=== PATIENT | female | born 1945 | race Caucasian/White ===

== ENCOUNTER 2016-10-03 12:32 | Emergency (ER) | payer MEDICARE ==
[~2016-10-03] VITALS: Ht 157.4 cm; Wt 79.4 kg
[~2016-10-03 12:32] MED LIST: ALLEGRA D PO; AMLODIPINE5 MG PO; ASPIRIN325 MG PO; AUGMENTIN 875875 MG PO; BACTRIM DS 8001 TA1 PO; CHANTIX1 M1 PO; CIPRO500 MG PO; CIPROFLOXACIN500 MG PO; CLARITIN10 MG PO; FLAGYL500 MG PO; JANUVIA50 MG PO; LISINOPRIL HCTZ1 TA1 PO; LISINOPRIL/HCTZ1 TA3 PO; LISINOPRIL20 MG PO; LOMOTIL 0.025 M1 TA1 PO; METFORMIN500 MG PO; METOPROLOL SUCC25 M2 PO; MOTRIN800 MG PO; PREDNISONE10 MG PO; PREDNISONE20 M1 PO; PREDNISONE20 MG PO; TESSALON PERLE200 MG PO; TOPROL XL25 MG PO; VITAMIN D32000 I1 PO; XARE20MG PO; ZETIA10 MG PO; ZITHROMAX Z PA250 MG PO; ZITHROMAX250 MG PO; Zofran4 MG PO
[2016-10-03 14:04] LABS: BASO # 0.1 10*3/uL (0.0-0.1); BASO % 0.6 % (0.0-1.0); EOS # 0.3 10*3/uL (0.0-0.4); HEMATOCRIT 44.3 % (37.0-47.0); HEMOGLOBIN 13.8 g/dl (12.0-16.0); LYMPH # 2.1 10*3/uL (1.3-4.4); LYMPH % 22.7 % (27.0-41.0); MEAN CELL VOLUME 91.9 fl (81.0-99.0); MEAN CORPUSCULAR HGB 28.6 pg (27.0-31.0); MEAN CORPUSCULAR HGB CONC 31.2 g/dl (33.0-37.0); MEAN PLATELET VOLUME 11.4 fl (9.6-12.3); MONO # 0.9 10*3/uL (0.1-1.0); MONO % 9.4 % (3.0-9.0); NEUT % 63.9 % (47.0-73.0); PLATELET COUNT AUTOMATED 223 10*3/uL (130-400); RED BLOOD COUNT 4.82 10*6/uL (4.10-5.10); RED CELL DISTRI WIDTH 14.3 % (0-14.5); WHITE BLOOD COUNT 9.4 10*3/uL (4.8-10.8)
[2016-10-03 14:31] LABS: BUN 14 mg/dl (7-24); CARBON DIOXIDE 29 mmol/L (21-32); CHLORIDE 105 mmol/L (98-107); EST GLOM FILT AFRICAN AMERICAN > 60 ml/min; GLUCOSE 140 mg/dL (65-99); POTASSIUM 4.5 mmol/L (3.5-5.1); SODIUM 142 mmol/L (136-145)
[2016-10-03] MEDS ORDERED: ZITHROMAX250 MG PO (15:24)
[2016-10-03] MEDS ORDERED: DELTASONE20 M1 PO (15:24)
[2016-11-07] MEDS ORDERED: ANAPROX DS550 MG PO (15:46)
[2016-11-07] MEDS ORDERED: TRAMADOL HCL50 MG PO (15:53)
== END 2016-10-03 15:29 | disposition home or self-care (01) ==
LOC: ED 12:32
PROVIDERS: Emergency Medicine
DX: J40 Bronchitis, not specified as acute or chronic (principal); F17.200 Nicotine dependence, unspecified, uncomplicated; F41.9 Anxiety disorder, unspecified; I48.91 Unspecified atrial fibrillation; E11.9 Type 2 diabetes mellitus without complications; I10 Essential (primary) hypertension; E78.5 Hyperlipidemia, unspecified; Z86.73 Personal history of transient ischemic attack (TIA), and cerebral infarction without residual deficits; Z90.710 Acquired absence of both cervix and uterus; Z88.8 Allergy status to other drugs, medicaments and biological substances

== ENCOUNTER → 2017-01-18 | Outpatient (CLI) | payer MEDICARE ==
[~2017-01-18] MED LIST changes: +ANAPROX DS550 MG PO; +DELTASONE20 M1 PO; +TRAMADOL HCL50 MG PO
[2017-01-18 09:58] LABS: BASO # 0.1 10*3/uL (0.0-0.1); BASO % 0.7 % (0.0-1.0); EOS # 0.4 10*3/uL (0.0-0.4); EOS % 4.1 % (1.0-4.0); HEMATOCRIT 43.6 % (37.0-47.0); HEMOGLOBIN 14.1 g/dl (12.0-16.0); LYMPH # 2.5 10*3/uL (1.3-4.4); LYMPH % 25.5 % (27.0-41.0); MEAN CELL VOLUME 90.5 fl (81.0-99.0); MEAN CORPUSCULAR HGB 29.3 pg (27.0-31.0); MEAN CORPUSCULAR HGB CONC 32.3 g/dl (33.0-37.0); MEAN PLATELET VOLUME 11.5 fl (9.6-12.3); MONO # 0.9 10*3/uL (0.1-1.0); MONO % 9.5 % (3.0-9.0); NEUT # 5.9 10*3/uL (2.3-7.9); NEUT % 59.9 % (47.0-73.0); PLATELET COUNT AUTOMATED 272 10*3/uL (130-400); RED BLOOD COUNT 4.82 10*6/uL (4.10-5.10); RED CELL DISTRI WIDTH 13.5 % (0-14.5); WHITE BLOOD COUNT 9.8 10*3/uL (4.8-10.8)
[2017-01-18 10:26] LABS: ALBUMIN 3.5 gm/dl (3.1-4.5); ALKALINE PHOSPHATASE 88 U/L (45-117); BILIRUBIN, TOTAL 0.5 mg/dl (0.2-1.0); BUN 20 mg/dl (7-24); CARBON DIOXIDE 29 mmol/L (21-32); CHLORIDE 103 mmol/L (98-107); CHOLESTEROL 183 mg/dL (<200); EST GLOM FILT AFRICAN AMERICAN > 60 ml/min; GLUCOSE 117 mg/dL (65-99); HDL CHOLESTEROL 47 mg/dl (40-60); LDL CHOLESTEROL 113 mg/dL (9-159); POTASSIUM 4.1 mmol/L (3.5-5.1); SGOT/AST 34 IU/L (3-35); SGPT/ALT 41 U/L (12-78); SODIUM 138 mmol/L (136-145); TOTAL PROTEIN 7.3 gm/dL (6.4-8.2); TRIGLYCERIDES 113 mg/dl (<150); VLDL CHOLESTEROL 23 mg/dL (6-40)
== END | disposition home or self-care (01) ==
LOC: LAB 09:03
PROVIDERS: Internal Medicine
DX: E11.9 Type 2 diabetes mellitus without complications (principal)

== ENCOUNTER 2017-05-12 08:49 | Emergency (ER) | payer MEDICARE ==
[~2017-05-12] VITALS: Ht 160 cm; Wt 0.5 kg
[2017-05-12] MEDS ORDERED: HYDROXYZINE HCL50 MG PO (09:20)
[2017-05-12] MEDS ORDERED: KENALOG 0.1%80 GM T (09:20)
== END 2017-05-12 09:41 | disposition home or self-care (01) ==
LOC: ED 08:49
DX: L25.9 Unspecified contact dermatitis, unspecified cause (principal); E11.9 Type 2 diabetes mellitus without complications; I48.91 Unspecified atrial fibrillation; I10 Essential (primary) hypertension; E78.5 Hyperlipidemia, unspecified; I48.92 Unspecified atrial flutter; F17.200 Nicotine dependence, unspecified, uncomplicated; Z86.73 Personal history of transient ischemic attack (TIA), and cerebral infarction without residual deficits; Z88.8 Allergy status to other drugs, medicaments and biological substances; Z79.899 Other long term (current) drug therapy

== ENCOUNTER → 2017-05-13 | Outpatient (CLI) | payer MEDICARE ==
[~2017-05-13] MED LIST changes: +HYDROXYZINE HCL50 MG PO; +KENALOG 0.1%80 GM T
== END | disposition home or self-care (01) ==
LOC: MAMMO 04:41
DX: Z12.31 Encounter for screening mammogram for malignant neoplasm of breast (principal)

== ENCOUNTER 2018-03-15 13:44 | Emergency (ER) | payer MEDICARE, OTHER ==
[~2018-03-15] VITALS: Wt 76.2 kg
== END 2018-03-15 16:44 | disposition home or self-care (01) ==
LOC: ED 13:44
DX: M54.2 Cervicalgia (principal); F17.200 Nicotine dependence, unspecified, uncomplicated; Z90.710 Acquired absence of both cervix and uterus; Z79.899 Other long term (current) drug therapy; Z88.8 Allergy status to other drugs, medicaments and biological substances; V43.52XA Car driver injured in collision with other type car in traffic accident, initial encounter; Y93.89 Activity, other specified; Y92.481 Parking lot as the place of occurrence of the external cause; Y99.8 Other external cause status

== ENCOUNTER → 2018-03-17 | Outpatient (CLI) | payer MEDICARE, OTHER | END | disposition home or self-care (01) | LOC: RAD 15:17 | DX: M75.91 Shoulder lesion, unspecified, right shoulder (principal); I48.91 Unspecified atrial fibrillation; E04.1 Nontoxic single thyroid nodule; M67.911 Unspecified disorder of synovium and tendon, right shoulder ==

== ENCOUNTER → 2018-03-25 | Outpatient (CLI) | payer MEDICARE | END | disposition home or self-care (01) | LOC: NM 06:53 | DX: E04.1 Nontoxic single thyroid nodule (principal) ==

== ENCOUNTER → 2018-07-03 | Outpatient (CLI) | payer MEDICARE ==
[~2018-07-03] MED LIST changes: +BENADRYL25 M2 PO; +MEDROL DOSEPAK4 MG PO
== END | disposition home or self-care (01) ==
LOC: MAMMO 07-02 13:59
DX: Z12.31 Encounter for screening mammogram for malignant neoplasm of breast (principal)

== ENCOUNTER 2018-07-31 00:50 | Emergency (ER) | payer MEDICARE ==
[~2018-07-31] VITALS: Ht 158.7 cm; Wt 77.1 kg
[~2018-07-31 00:50] MED LIST changes: -BENADRYL25 M2 PO; -MEDROL DOSEPAK4 MG PO
[2018-07-31] MEDS ORDERED: MEDROL DOSEPAK4 MG PO (01:05)
[2018-07-31] MEDS ORDERED: BENADRYL25 M2 PO (01:05)
== END 2018-07-31 01:25 | disposition home or self-care (01) ==
LOC: ED 00:50
DX: T63.441A Toxic effect of venom of bees, accidental (unintentional), initial encounter (principal); M79.672 Pain in left foot; F17.200 Nicotine dependence, unspecified, uncomplicated; Z88.8 Allergy status to other drugs, medicaments and biological substances; Z79.899 Other long term (current) drug therapy; Y92.89 Other specified places as the place of occurrence of the external cause

== ENCOUNTER 2018-12-04 11:32 | Emergency (ER) | payer OTHER ==
[~2018-12-04] VITALS: Ht 157.4 cm; Wt 77.1 kg
--- NOTE | ~2018-12-04 | EKG ---
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
--- NOTE | ~2018-12-04 | EKG ---
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
[~2018-12-04 11:32] MED LIST changes: +BENADRYL25 M2 PO; +MEDROL DOSEPAK4 MG PO
[2018-12-04 11:50] LABS: BASO # 0.1 10*3/uL (0.0-0.1); BASO % 0.8 % (0.0-1.0); EOS # 0.3 10*3/uL (0.0-0.4); HEMATOCRIT 50.2 % (37.0-47.0); HEMOGLOBIN 16.3 g/dl (12.0-16.0); LYMPH # 2.9 10*3/uL (1.3-4.4); LYMPH % 21.3 % (27.0-41.0); MEAN CELL VOLUME 92.1 fl (81.0-99.0); MEAN CORPUSCULAR HGB 29.9 pg (27.0-31.0); MEAN CORPUSCULAR HGB CONC 32.5 g/dl (33.0-37.0); MEAN PLATELET VOLUME 11.6 fl (9.6-12.3); MONO % 7.5 % (3.0-9.0); NEUT # 9.1 10*3/uL (2.3-7.9); NEUT % 67.7 % (47.0-73.0); PLATELET COUNT AUTOMATED 298 10*3/uL (130-400); RED BLOOD COUNT 5.45 10*6/uL (4.10-5.10); RED CELL DISTRI WIDTH 13.5 % (0-14.5); WHITE BLOOD COUNT 13.5 10*3/uL (4.8-10.8)
[2018-12-04 12:00] LABS: ACT PARTIAL THROMBO TIME 28.7 SECONDS (20.8-31.5); INTERNATIONAL NORM RATIO 1.1 (2.0-3.5)
[2018-12-04 13:04] LABS: ALBUMIN 3.4 gm/dl (3.1-4.5); ALKALINE PHOSPHATASE 93 U/L (45-117); BUN 14 mg/dl (7-24); CHLORIDE 100 mmol/L (98-107); CREATININE 1.01 mg/dL (0.55-1.02); POTASSIUM 4.1 mmol/L (3.5-5.1); SGOT/AST 22 IU/L (3-35); SGPT/ALT 33 U/L (12-78); SODIUM 135 mmol/L (136-145); TOTAL PROTEIN 7.7 gm/dL (6.4-8.2)
[2018-12-04 13:08] LABS: TROPONIN I 0.137 ng/ml (<0.045)
== END 2018-12-04 15:31 | disposition short-term general hospital (02) ==
LOC: ED 11:32
PROVIDERS: Emergency Medicine
DX: I21.4 Non-ST elevation (NSTEMI) myocardial infarction (principal); I48.91 Unspecified atrial fibrillation; E11.9 Type 2 diabetes mellitus without complications; F17.200 Nicotine dependence, unspecified, uncomplicated; I10 Essential (primary) hypertension; E78.5 Hyperlipidemia, unspecified; I48.92 Unspecified atrial flutter; Z90.49 Acquired absence of other specified parts of digestive tract; Z86.73 Personal history of transient ischemic attack (TIA), and cerebral infarction without residual deficits; Z90.710 Acquired absence of both cervix and uterus; Z98.890 Other specified postprocedural states; Z98.51 Tubal ligation status; Z79.899 Other long term (current) drug therapy; Z91.041 Radiographic dye allergy status; Z79.01 Long term (current) use of anticoagulants; Z79.82 Long term (current) use of aspirin

== ENCOUNTER → 2019-10-07 | Outpatient (CLI) | payer OTHER | END | disposition home or self-care (01) | LOC: RAD 13:57 | DX: M51.36 Other intervertebral disc degeneration, lumbar region (principal); E11.9 Type 2 diabetes mellitus without complications; I10 Essential (primary) hypertension; J44.0 Chronic obstructive pulmonary disease with (acute) lower respiratory infection; F17.200 Nicotine dependence, unspecified, uncomplicated ==

== ENCOUNTER → 2019-10-19 | Outpatient (CLI) | payer OTHER | LOC: MAMMO 01:38 | DX: Z12.31 Encounter for screening mammogram for malignant neoplasm of breast (principal) ==

== ENCOUNTER 2021-05-29 23:19 | Inpatient (IN) | payer OTHER ==
[~2021-05-29] VITALS: Ht 160 cm; Wt 75.0 kg
[~2021-05-29 23:19] MED LIST changes: +GLUCOPHAGE500 MG PO; -LISINOPRIL20 MG PO; +ZESTRIL10 MG PO
[2021-05-29 23:30] VITALS: BP 145/73
[2021-05-30] VITALS (7 sets, daily range): BP systolic 119–162; BP diastolic 48–88
[2021-05-30 00:15] LABS: BASO # 0.1 10*3/uL (0.0-0.1); BASO % 0.7 % (0.0-1.0); EOS # 0.4 10*3/uL (0.0-0.4); EOS % 3.1 % (1.0-4.0); HEMATOCRIT 43.5 % (37.0-47.0); LYMPH # 1.7 10*3/uL (1.3-4.4); LYMPH % 14.1 % (27.0-41.0); MEAN CELL VOLUME 92.9 fl (81.0-99.0); MEAN CORPUSCULAR HGB 29.7 pg (27.0-31.0); MEAN PLATELET VOLUME 11.5 fl (9.6-12.3); NEUT # 9.1 10*3/uL (2.3-7.9); NEUT % 73.7 % (47.0-73.0); PLATELET COUNT AUTOMATED 232 10*3/uL (130-400); RED BLOOD COUNT 4.68 10*6/uL (4.10-5.10); RED CELL DISTRI WIDTH 13.9 % (0-14.5); WHITE BLOOD COUNT 12.3 10*3/uL (4.8-10.8)
[2021-05-30 00:29] LABS: ALBUMIN 3.7 gm/dl (3.1-4.5); CREATININE 1.33 mg/dL (0.55-1.02); POTASSIUM 3.6 mmol/L (3.5-5.1); TOTAL PROTEIN 7.9 gm/dL (6.4-8.2)
[2021-05-30 00:59] LABS: BILIRUBIN Negative (Negative); BLOOD Negative (Negative); CLARITY Cloudy (Clear); COLOR Yellow (Yellow); GLUCOSE Negative (Negative); KETONE Trace (Negative); LEUKO ESTERASE 1+ (Negative); NITRITE Negative (Negative)
[2021-05-30 01:16] LABS: EPITHELIAL CELLS 41-50; WBC 16-20 wbc/hpf (0-5)
[2021-05-30 01:17] LABS: BACTERIA 1+; YEAST TRACE
[2021-05-30] MEDS ORDERED: METOPROLOL SUCC25 M2 PO (05:41)
[2021-05-30] MEDS ORDERED: Motrin,Rufen800 MG PO (05:45)
[2021-05-30] MEDS ORDERED: TRAZODONE50 MG PO (05:47)
[2021-05-30] MEDS ORDERED: COMBIVENT RESPIM4 GM INH ×2 (05:49→05:51)
[2021-05-30] MEDS ORDERED: ALBUTEROL2.5 MG/0.5 NEB (05:50)
[2021-05-30] MEDS ORDERED: FUROSEMIDE20 M1 PO (05:51)
[2021-05-30 06:26] LABS: BASO # 0.1 10*3/uL (0.0-0.1); BASO % 0.5 % (0.0-1.0); EOS % 0.2 % (1.0-4.0); HEMATOCRIT 43.4 % (37.0-47.0); LYMPH # 1.4 10*3/uL (1.3-4.4); LYMPH % 12.2 % (27.0-41.0); MEAN CELL VOLUME 92.9 fl (81.0-99.0); MEAN CORPUSCULAR HGB 29.1 pg (27.0-31.0); MEAN CORPUSCULAR HGB CONC 31.3 g/dl (33.0-37.0); MEAN PLATELET VOLUME 11.8 fl (9.6-12.3); MONO # 0.5 10*3/uL (0.1-1.0); MONO % 4.4 % (3.0-9.0); NEUT # 9.3 10*3/uL (2.3-7.9); NEUT % 82.3 % (47.0-73.0); PLATELET COUNT AUTOMATED 223 10*3/uL (130-400); RED BLOOD COUNT 4.67 10*6/uL (4.10-5.10); RED CELL DISTRI WIDTH 13.8 % (0-14.5); WHITE BLOOD COUNT 11.3 10*3/uL (4.8-10.8)
[2021-05-30 06:34] LABS: ALBUMIN 3.2 gm/dl (3.1-4.5); ALKALINE PHOSPHATASE 79 U/L (45-117); BUN 26 mg/dl (7-24); CHLORIDE 108 mmol/L (98-107); CREATININE 1.04 mg/dL (0.55-1.02); POTASSIUM 3.9 mmol/L (3.5-5.1); SGOT/AST 19 IU/L (3-35); SGPT/ALT 25 U/L (12-78); SODIUM 139 mmol/L (136-145); TOTAL PROTEIN 7.5 gm/dL (6.4-8.2)
[2021-05-31] VITALS: BP 120/52
[2021-05-31 07:02] LABS: BASO # 0.1 10*3/uL (0.0-0.1); BASO % 0.5 % (0.0-1.0); EOS # 0.1 10*3/uL (0.0-0.4); EOS % 1.2 % (1.0-4.0); HEMATOCRIT 38.4 % (37.0-47.0); LYMPH # 2.2 10*3/uL (1.3-4.4); LYMPH % 19.6 % (27.0-41.0); MEAN CELL VOLUME 92.8 fl (81.0-99.0); MEAN CORPUSCULAR HGB 29.5 pg (27.0-31.0); MEAN CORPUSCULAR HGB CONC 31.8 g/dl (33.0-37.0); MEAN PLATELET VOLUME 11.9 fl (9.6-12.3); MONO # 0.9 10*3/uL (0.1-1.0); NEUT # 7.8 10*3/uL (2.3-7.9); NEUT % 70.2 % (47.0-73.0); PLATELET COUNT AUTOMATED 205 10*3/uL (130-400); RED BLOOD COUNT 4.14 10*6/uL (4.10-5.10); WHITE BLOOD COUNT 11.1 10*3/uL (4.8-10.8)
[2021-05-31 07:25] LABS: CHLORIDE 110 mmol/L (98-107); POTASSIUM 3.7 mmol/L (3.5-5.1); SODIUM 139 mmol/L (136-145)
[2021-05-31 07:31] LABS: CREATININE 0.83 mg/dL (0.55-1.02)
[2021-05-31 07:32] LABS: BUN 15 mg/dl (7-24)
[2021-05-31 08:00] VITALS: BP 144/74
[2021-05-31 12:00] VITALS: BP 134/68
[2021-05-31 16:00] VITALS: BP 111/61
[2021-05-31 20:00] VITALS: BP 166/86
[2021-06-01] VITALS: BP 152/81
[2021-06-01 06:05] LABS: BASO # 0.1 10*3/uL (0.0-0.1); BASO % 0.7 % (0.0-1.0); EOS # 0.2 10*3/uL (0.0-0.4); EOS % 2.6 % (1.0-4.0); HEMATOCRIT 41.2 % (37.0-47.0); LYMPH # 1.8 10*3/uL (1.3-4.4); LYMPH % 20.5 % (27.0-41.0); MEAN CELL VOLUME 91.2 fl (81.0-99.0); MEAN CORPUSCULAR HGB 29.2 pg (27.0-31.0); MEAN PLATELET VOLUME 11.6 fl (9.6-12.3); MONO # 0.9 10*3/uL (0.1-1.0); MONO % 9.8 % (3.0-9.0); NEUT # 5.8 10*3/uL (2.3-7.9); NEUT % 65.6 % (47.0-73.0); PLATELET COUNT AUTOMATED 198 10*3/uL (130-400); RED BLOOD COUNT 4.52 10*6/uL (4.10-5.10); RED CELL DISTRI WIDTH 13.6 % (0-14.5); WHITE BLOOD COUNT 8.8 10*3/uL (4.8-10.8)
[2021-06-01 06:22] LABS: BUN 8 mg/dl (7-24); CHLORIDE 108 mmol/L (98-107); CREATININE 0.72 mg/dL (0.55-1.02); POTASSIUM 3.2 mmol/L (3.5-5.1); SODIUM 138 mmol/L (136-145)
[2021-06-01 08:00] VITALS: BP 176/88
[2021-06-01 12:00] VITALS: BP 138/65
[2021-06-01 16:00] VITALS: BP 143/76
[2021-06-01 20:00] VITALS: BP 150/72
[2021-06-02] VITALS: BP 151/71
[2021-06-02 06:29] LABS: CHLORIDE 106 mmol/L (98-107); POTASSIUM 3.7 mmol/L (3.5-5.1); SODIUM 138 mmol/L (136-145)
[2021-06-02 06:34] LABS: BUN 6 mg/dl (7-24); CREATININE 0.78 mg/dL (0.55-1.02)
[2021-06-02 08:00] VITALS: BP 150/104
[2021-06-02 12:00] VITALS: BP 142/72
[2021-06-02 16:00] VITALS: BP 106/83
[2021-06-02 20:00] VITALS: BP 142/67
[2021-06-03] VITALS: BP 138/71
[2021-06-03 06:51] LABS: BUN 15 mg/dl (7-24); CHLORIDE 106 mmol/L (98-107); CREATININE 0.94 mg/dL (0.55-1.02); POTASSIUM 3.8 mmol/L (3.5-5.1); SODIUM 138 mmol/L (136-145)
[2021-06-03 08:00] VITALS: BP 146/79
[2021-06-03 12:00] VITALS: BP 141/72
[2021-06-03] MEDS ORDERED: CIPRO500 MG PO (13:38)
[2021-06-03] MEDS ORDERED: HYDROCODONE-AC1 EAC1 PO (13:58)
== END 2021-06-03 14:20 | disposition home or self-care (01) | DRG 871 ==
LOC: ED 23:19 → 5E 05-30 02:26 → 4E 05-30 02:26 → EDHOLD 05-30 02:26 → 4E 05-30 03:28 → 5E 05-30 20:18
PROVIDERS: Emergency Medicine; Hospitalist; Internal Medicine; Social Worker Clinical; ADMIT Internal Medicine; ATTEND Internal Medicine
DX: A41.9 Sepsis, unspecified organism (principal); J96.00 Acute respiratory failure, unspecified whether with hypoxia or hypercapnia; N17.0 Acute kidney failure with tubular necrosis; N30.00 Acute cystitis without hematuria; E87.2 Acidosis; I48.0 Paroxysmal atrial fibrillation; R65.20 Severe sepsis without septic shock; F17.210 Nicotine dependence, cigarettes, uncomplicated; F41.9 Anxiety disorder, unspecified; E11.65 Type 2 diabetes mellitus with hyperglycemia; E78.5 Hyperlipidemia, unspecified; I10 Essential (primary) hypertension; E55.9 Vitamin D deficiency, unspecified; K76.0 Fatty (change of) liver, not elsewhere classified; N28.1 Cyst of kidney, acquired; I25.2 Old myocardial infarction; Z86.73 Personal history of transient ischemic attack (TIA), and cerebral infarction without residual deficits; Z90.710 Acquired absence of both cervix and uterus; Z98.51 Tubal ligation status; Z95.1 Presence of aortocoronary bypass graft; Z71.6 Tobacco abuse counseling; Z82.49 Family history of ischemic heart disease and other diseases of the circulatory system; Z79.51 Long term (current) use of inhaled steroids; Z79.899 Other long term (current) drug therapy

== ENCOUNTER → 2021-08-10 | Outpatient (CLI) | payer OTHER ==
[~2021-08-10] MED LIST changes: +ALBUTEROL2.5 MG/0.5 NEB; +COMBIVENT RESPIM4 GM INH; +FUROSEMIDE20 M1 PO; +HYDROCODONE-AC1 EAC1 PO; +Motrin,Rufen800 MG PO; +TRAZODONE50 MG PO
== END | disposition home or self-care (01) ==
LOC: LAB 15:31
PROVIDERS: ATTEND Family Medicine
DX: R19.7 Diarrhea, unspecified (principal)

== ENCOUNTER → 2022-02-08 | Outpatient (CLI) | payer OTHER | END | disposition home or self-care (01) | LOC: US 13:30 | PROVIDERS: ATTEND Specialist | DX: E04.1 Nontoxic single thyroid nodule (principal) ==

== ENCOUNTER → 2022-04-30 | Outpatient (CLI) | payer OTHER | END | disposition home or self-care (01) | LOC: MAMMO 14:54 | PROVIDERS: ATTEND Physician Assistant | DX: Z12.31 Encounter for screening mammogram for malignant neoplasm of breast (principal) ==

== ENCOUNTER 2022-11-30 10:12 | Emergency (ER) | payer OTHER ==
[~2022-11-30] VITALS: Wt 76.2 kg
[2022-11-30 10:55] LABS: BILIRUBIN Negative (Negative); BLOOD 2+ (Negative); CLARITY Turbid (Clear); COLOR Yellow (Yellow); GLUCOSE Negative (Negative); KETONE Negative (Negative); LEUKO ESTERASE 3+ (Negative); NITRITE Negative (Negative); PH 5.5 (4.5-8.0); UROBILINOGEN 0.2 E.U./dl (0.0-1.0)
[2022-11-30 11:04] LABS: WBC TNTC wbc/hpf (0-5)
[2022-11-30] MEDS ORDERED: CIPRO500 MG PO (11:11)
== END 2022-11-30 11:11 | disposition home or self-care (01) ==
LOC: ED 10:12
PROVIDERS: Student in an Organized Health Care Education/Training Program
DX: N39.0 Urinary tract infection, site not specified (principal); F41.9 Anxiety disorder, unspecified; I10 Essential (primary) hypertension; E11.9 Type 2 diabetes mellitus without complications; I48.91 Unspecified atrial fibrillation; Z88.8 Allergy status to other drugs, medicaments and biological substances; Z90.710 Acquired absence of both cervix and uterus; Z98.51 Tubal ligation status; Z98.890 Other specified postprocedural states; F17.200 Nicotine dependence, unspecified, uncomplicated; Z98.49 Cataract extraction status, unspecified eye; Z96.1 Presence of intraocular lens

== ENCOUNTER → 2023-01-09 | Outpatient (CLI) | payer OTHER | LOC: CT 00:45 | PROVIDERS: ATTEND Physician Assistant | DX: J43.8 Other emphysema (principal); J47.9 Bronchiectasis, uncomplicated; K76.0 Fatty (change of) liver, not elsewhere classified; J84.10 Pulmonary fibrosis, unspecified; N28.1 Cyst of kidney, acquired; J98.11 Atelectasis; I70.0 Atherosclerosis of aorta; I25.10 Atherosclerotic heart disease of native coronary artery without angina pectoris; E04.2 Nontoxic multinodular goiter; K40.20 Bilateral inguinal hernia, without obstruction or gangrene, not specified as recurrent; M48.061 Spinal stenosis, lumbar region without neurogenic claudication ==

== ENCOUNTER → 2023-02-14 | Outpatient (CLI) | payer OTHER, MEDICAID | END | disposition home or self-care (01) | LOC: US 01:44 | PROVIDERS: ATTEND Specialist | DX: E04.2 Nontoxic multinodular goiter (principal) ==

== ENCOUNTER 2023-03-24 13:51 | Emergency (ER) | payer OTHER, MEDICAID ==
[~2023-03-24] VITALS: Ht 160 cm; Wt 76.2 kg
[2023-03-24 14:36] LABS: BASO # 0.1 10*3/uL (0.0-0.1); BASO % 0.5 % (0.0-1.0); EOS # 0.1 10*3/uL (0.0-0.4); EOS % 0.5 % (1.0-4.0); LYMPH # 1.6 10*3/uL (1.3-4.4); LYMPH % 13.1 % (27.0-41.0); MEAN CELL VOLUME 92.5 fl (81.0-99.0); MEAN CORPUSCULAR HGB 30.3 pg (27.0-31.0); MEAN CORPUSCULAR HGB CONC 32.7 g/dl (33.0-37.0); MEAN PLATELET VOLUME 11.2 fl (9.6-12.3); MONO # 0.9 10*3/uL (0.1-1.0); MONO % 7.3 % (3.0-9.0); NEUT # 9.4 10*3/uL (2.3-7.9); NEUT % 78.2 % (47.0-73.0); PLATELET COUNT AUTOMATED 238 10*3/uL (130-400); RED BLOOD COUNT 5.19 10*6/uL (4.10-5.10); RED CELL DISTRI WIDTH 13.8 % (0-14.5)
[2023-03-24 14:56] LABS: POTASSIUM 4.1 mmol/L (3.4-5.1); TOTAL PROTEIN 7.5 gm/dL (6.0-8.0)
[2023-03-24 16:13] LABS: BILIRUBIN Negative (Negative); BLOOD Trace-Lysed (Negative); CLARITY Clear (Clear); COLOR Yellow (Yellow); GLUCOSE 3+ (Negative); KETONE Negative (Negative); LEUKO ESTERASE Negative (Negative); NITRITE Negative (Negative); SPECIFIC GRAVITY 1.015 (1.001-1.030); UROBILINOGEN 0.2 E.U./dl (0.0-1.0)
[2023-03-24 16:19] LABS: MUCOUS 1+
[2023-03-24] MEDS ORDERED: CIPRO500 MG PO (16:53)
[2023-03-24] MEDS ORDERED: HYDROCODONE-AC1 EAC1 PO (16:53)
[2023-03-24] MEDS ORDERED: METRONIDAZOLE500 M1 PO (16:53)
[2023-03-25] MEDS ORDERED: JARDIANCE25 MG PO (20:06)
[2023-03-25] MEDS ORDERED: NEURONTIN300 MG PO (20:06)
[2023-03-25] MEDS ORDERED: LUMIGAN50 DRP OPH (20:07)
[2023-03-25] MEDS ORDERED: BRIMONIDINE TART5 ML OU (20:08)
[2023-03-26] MEDS ORDERED: D3 DOTS50 MCG PO (08:58)
[2023-03-28] MEDS ORDERED: DELZICOL400 M2 PO (12:56)
== END 2023-03-24 16:58 | disposition home or self-care (01) ==
LOC: ED 13:51
PROVIDERS: Emergency Medicine
DX: K52.9 Noninfective gastroenteritis and colitis, unspecified (principal); I10 Essential (primary) hypertension; F41.9 Anxiety disorder, unspecified; E11.9 Type 2 diabetes mellitus without complications; I48.91 Unspecified atrial fibrillation; Z88.8 Allergy status to other drugs, medicaments and biological substances; Z90.710 Acquired absence of both cervix and uterus; Z98.51 Tubal ligation status; Z98.890 Other specified postprocedural states; Z98.42 Cataract extraction status, left eye; Z96.1 Presence of intraocular lens; F17.200 Nicotine dependence, unspecified, uncomplicated

== ENCOUNTER → 2023-05-05 | Day surgery (SDC) | payer OTHER, MEDICAID ==
[~2023-05-05] VITALS: Ht 160 cm; Wt 75.7 kg
[~2023-05-05] MED LIST changes: +ASPIRIN ADULT L81 M2 PO; +BRIMONIDINE TART5 ML OU; +D3 DOTS50 MCG PO; +DELZICOL400 M2 PO; +JARDIANCE25 MG PO; +LUMIGAN50 DRP OU; +METRONIDAZOLE500 M1 PO; +NEURONTIN300 MG PO
[2023-05-05 06:30] VITALS: BP 107/49
[2023-05-05 07:49] VITALS: BP 72/38
[2023-05-05 08:04] VITALS: BP 99/50
[2023-05-05 08:19] VITALS: BP 111/63
[2023-05-05 08:28] VITALS: BP 142/71
== END ==
LOC: SDC 05-01 08:00
PROVIDERS: ATTEND Surgery
DX: K52.9 Noninfective gastroenteritis and colitis, unspecified (principal); K21.9 Gastro-esophageal reflux disease without esophagitis; K29.50 Unspecified chronic gastritis without bleeding; E11.9 Type 2 diabetes mellitus without complications; I25.2 Old myocardial infarction; I10 Essential (primary) hypertension; I25.10 Atherosclerotic heart disease of native coronary artery without angina pectoris; E78.00 Pure hypercholesterolemia, unspecified; J44.9 Chronic obstructive pulmonary disease, unspecified; Z86.16 Personal history of COVID-19; Z86.73 Personal history of transient ischemic attack (TIA), and cerebral infarction without residual deficits; Z85.828 Personal history of other malignant neoplasm of skin; Z87.891 Personal history of nicotine dependence; Z79.899 Other long term (current) drug therapy; Z98.51 Tubal ligation status; Z90.710 Acquired absence of both cervix and uterus; Z98.890 Other specified postprocedural states; Z88.8 Allergy status to other drugs, medicaments and biological substances

== ENCOUNTER → 2023-09-01 | Outpatient (CLI) | payer OTHER, MEDICAID | END | disposition home or self-care (01) | LOC: RAD 00:33 | PROVIDERS: ATTEND Physician Assistant | DX: Z13.820 Encounter for screening for osteoporosis (principal); Z78.0 Asymptomatic menopausal state ==

== ENCOUNTER 2023-12-19 15:02 | Emergency (ER) | payer OTHER ==
[~2023-12-19] VITALS: Ht 162.5 cm; Wt 70.3 kg
[2023-12-19] MEDS ORDERED: SODIUM CHLORIDE 0.9% 1,000 ML IV ONE (15:45)
[2023-12-19] MEDS ORDERED: Atropine Sulfate/Diphenoxyla 1 TAB TAB PO ONE (15:50)
[2023-12-19 16:16] LABS: BASO # 0.1 10*3/uL (0.0-0.1); BASO % 0.6 % (0.0-1.0); EOS % 7.1 % (1.0-4.0); LYMPH # 2.6 10*3/uL (1.3-4.4); MEAN CELL VOLUME 93.6 fl (81.0-99.0); MEAN CORPUSCULAR HGB 27.9 pg (27.0-31.0); MEAN CORPUSCULAR HGB CONC 29.8 g/dl (33.0-37.0); MEAN PLATELET VOLUME 11.6 fl (9.6-12.3); MONO # 1.3 10*3/uL (0.1-1.0); MONO % 9.4 % (3.0-9.0); NEUT # 8.7 10*3/uL (2.3-7.9); NEUT % 63.6 % (47.0-73.0); PLATELET COUNT AUTOMATED 269 10*3/uL (130-400); RED BLOOD COUNT 5.77 10*6/uL (4.10-5.10); RED CELL DISTRI WIDTH 15.4 % (0-14.5); WHITE BLOOD COUNT 13.7 10*3/uL (4.8-10.8)
[2023-12-19] MEDS ORDERED: Albuterol Sulfate 2.5 MG/3 ML VIAL NEB SCH (16:23)
[2023-12-19 16:39] LABS: POTASSIUM 3.7 mmol/L (3.4-5.1); TOTAL PROTEIN 8.1 gm/dL (6.0-8.0)
[2023-12-19] MEDS ORDERED: PROBIOTIC1 EAC7 PO (16:47)
[2023-12-19] MEDS ORDERED: ANTI-DIARRHEAL2 MG PO (16:47)
== END 2023-12-19 17:07 | disposition home or self-care (01) ==
LOC: ED 15:02
PROVIDERS: Emergency Medicine
DX: R19.7 Diarrhea, unspecified (principal); E11.9 Type 2 diabetes mellitus without complications; I10 Essential (primary) hypertension; E78.5 Hyperlipidemia, unspecified; F41.9 Anxiety disorder, unspecified; I48.91 Unspecified atrial fibrillation; I25.10 Atherosclerotic heart disease of native coronary artery without angina pectoris; E78.00 Pure hypercholesterolemia, unspecified; J44.9 Chronic obstructive pulmonary disease, unspecified; Z88.8 Allergy status to other drugs, medicaments and biological substances; Z98.890 Other specified postprocedural states; Z90.710 Acquired absence of both cervix and uterus; F17.200 Nicotine dependence, unspecified, uncomplicated

== ENCOUNTER 2024-01-28 14:13 | Emergency (ER) | payer OTHER, MEDICAID ==
[~2024-01-28] VITALS: Wt 72.6 kg
[~2024-01-28 14:13] MED LIST changes: +ANTI-DIARRHEAL2 MG PO; +PROBIOTIC1 EAC7 PO
[2024-01-28 15:07] LABS: BASO % 0.3 % (0.0-1.0); EOS # 0.2 10*3/uL (0.0-0.4); EOS % 2.1 % (1.0-4.0); HEMATOCRIT 46.1 % (37.0-47.0); LYMPH # 1.5 10*3/uL (1.3-4.4); LYMPH % 14.3 % (27.0-41.0); MEAN CELL VOLUME 89.5 fl (81.0-99.0); MEAN CORPUSCULAR HGB 27.6 pg (27.0-31.0); MEAN CORPUSCULAR HGB CONC 30.8 g/dl (33.0-37.0); MEAN PLATELET VOLUME 11.4 fl (9.6-12.3); MONO # 1.3 10*3/uL (0.1-1.0); MONO % 12.2 % (3.0-9.0); NEUT # 7.5 10*3/uL (2.3-7.9); NEUT % 70.8 % (47.0-73.0); PLATELET COUNT AUTOMATED 184 10*3/uL (130-400); RED BLOOD COUNT 5.15 10*6/uL (4.10-5.10); RED CELL DISTRI WIDTH 14.8 % (0-14.5); WHITE BLOOD COUNT 10.6 10*3/uL (4.8-10.8)
[2024-01-28 15:21] LABS: ACT PARTIAL THROMBO TIME 27.7 SECONDS (20.0-32.1)
[2024-01-28] MEDS ORDERED: AZITHROMYCIN 250 MG TAB PO ONE (18:05)
[2024-01-28] MEDS ORDERED: AVPAK AZITHROM250 M1 PO (18:05)
[2024-01-28] MEDS ORDERED: PREDNISONE20 M1 PO (18:05)
[2024-01-28] MEDS ORDERED: methylPREDNISolone sod succ 125 MG VIAL IM ONE (18:05)
== END 2024-01-28 18:45 | disposition home or self-care (01) ==
LOC: ED 14:13
PROVIDERS: Nurse Practitioner Family
DX: U07.1 COVID-19 (principal); J44.9 Chronic obstructive pulmonary disease, unspecified; R11.2 Nausea with vomiting, unspecified; R19.7 Diarrhea, unspecified; F41.9 Anxiety disorder, unspecified; E11.65 Type 2 diabetes mellitus with hyperglycemia; I10 Essential (primary) hypertension; E78.5 Hyperlipidemia, unspecified; I48.91 Unspecified atrial fibrillation; E78.00 Pure hypercholesterolemia, unspecified; Z88.8 Allergy status to other drugs, medicaments and biological substances; Z98.890 Other specified postprocedural states; Z90.710 Acquired absence of both cervix and uterus; Z98.51 Tubal ligation status; F17.200 Nicotine dependence, unspecified, uncomplicated

== ENCOUNTER → 2024-02-27 | Outpatient (CLI) | payer OTHER, MEDICAID ==
[~2024-02-27] MED LIST changes: +AVPAK AZITHROM250 M1 PO
== END ==
LOC: US 02-26 01:53
PROVIDERS: ATTEND Physician Assistant
DX: E04.2 Nontoxic multinodular goiter (principal)

== ENCOUNTER 2024-03-22 16:39 | Inpatient (IN) | payer OTHER, MEDICAID ==
[~2024-03-22] VITALS: Ht 160 cm; Wt 75.3 kg
[2024-03-22 17:09] VITALS: BP 126/53
[2024-03-22 17:32] LABS: BASO # 0.1 10*3/uL (0.0-0.1); BASO % 0.6 % (0.0-1.0); EOS # 1.5 10*3/uL (0.0-0.4); EOS % 14.7 % (1.0-4.0); HEMATOCRIT 45.4 % (37.0-47.0); LYMPH # 2.1 10*3/uL (1.3-4.4); LYMPH % 20.5 % (27.0-41.0); MEAN CELL VOLUME 93.2 fl (81.0-99.0); MEAN CORPUSCULAR HGB 28.7 pg (27.0-31.0); MEAN CORPUSCULAR HGB CONC 30.8 g/dl (33.0-37.0); MEAN PLATELET VOLUME 11.6 fl (9.6-12.3); MONO # 1.1 10*3/uL (0.1-1.0); MONO % 10.6 % (3.0-9.0); NEUT # 5.4 10*3/uL (2.3-7.9); NEUT % 53.1 % (47.0-73.0); PLATELET COUNT AUTOMATED 240 10*3/uL (130-400); RED BLOOD COUNT 4.87 10*6/uL (4.10-5.10); RED CELL DISTRI WIDTH 16.9 % (0-14.5); WHITE BLOOD COUNT 10.1 10*3/uL (4.8-10.8)
[2024-03-22 17:43] LABS: ACT PARTIAL THROMBO TIME 23.9 SECONDS (20.0-32.1)
[2024-03-22 17:46] LABS: POTASSIUM 3.9 mmol/L (3.4-5.1)
[2024-03-22] MEDS ORDERED: ASPIRIN, CHEWABLE 81 MG TAB PO ONE (18:10)
[2024-03-22] MEDS ORDERED: HEPARIN SODIUM 250 ML IV SCH (18:20)
[2024-03-22 18:35] VITALS: BP 119/68
[2024-03-22] MEDS ORDERED: Magnesium Hydroxide 30 ML UDC PO PRN (20:10)
[2024-03-22] MEDS ORDERED: ACETAMINOPHEN 325 MG TAB PO PRN (20:10)
[2024-03-22] MEDS ORDERED: Ondansetron Hydrochloride 4 MG/2 ML VIAL IV PRN (20:10)
[2024-03-22] MEDS ORDERED: DEXTROSE 10 % IN WATER 250 ML IV PRN (20:30)
[2024-03-22] MEDS ORDERED: Metoprolol Tartrate 25 MG TAB PO SCH (20:40)
[2024-03-22] MEDS ORDERED: NITROGLYCERIN 0.4 MG BOT SL PRN (21:00)
[2024-03-22 21:20] VITALS: BP 160/84
[2024-03-22] MEDS ORDERED: MIRTAZAPINE7.5 MG PO (21:48)
[2024-03-22] MEDS ORDERED: VARENICLINE TART1 MG PO (21:49)
[2024-03-22] MEDS ORDERED: INSULIN LISPRO 1 UNIT/0.01 ML SQ SCH (22:00)
[2024-03-22] MEDS ORDERED: Albuterol Sulfate 2.5 MG/3 ML VIAL NEB PRN (22:25)
[2024-03-22] MEDS ORDERED: Mirtazapine 15 MG TAB PO SCH (22:30)
[2024-03-22] MEDS ORDERED: BIMATOPROST 50 DRP BOT OPH SCH (22:31)
[2024-03-23] VITALS: BP 129/51
[2024-03-23 04:00] VITALS: BP 146/65
[2024-03-23] MEDS ORDERED: NITROGLYCERIN 1 IN PACKET T SCH (04:30)
[2024-03-23 06:14] LABS: BASO # 0.1 10*3/uL (0.0-0.1); BASO % 0.7 % (0.0-1.0); EOS # 1.6 10*3/uL (0.0-0.4); EOS % 13.5 % (1.0-4.0); HEMATOCRIT 41.6 % (37.0-47.0); LYMPH # 3.1 10*3/uL (1.3-4.4); LYMPH % 26.3 % (27.0-41.0); MEAN CELL VOLUME 91.8 fl (81.0-99.0); MEAN CORPUSCULAR HGB 29.1 pg (27.0-31.0); MEAN CORPUSCULAR HGB CONC 31.7 g/dl (33.0-37.0); MEAN PLATELET VOLUME 12.2 fl (9.6-12.3); MONO # 1.2 10*3/uL (0.1-1.0); MONO % 10.3 % (3.0-9.0); NEUT # 5.8 10*3/uL (2.3-7.9); NEUT % 48.7 % (47.0-73.0); PLATELET COUNT AUTOMATED 203 10*3/uL (130-400); RED BLOOD COUNT 4.53 10*6/uL (4.10-5.10); RED CELL DISTRI WIDTH 16.6 % (0-14.5); WHITE BLOOD COUNT 11.9 10*3/uL (4.8-10.8)
[2024-03-23 06:30] LABS: POTASSIUM 3.4 mmol/L (3.4-5.1); TOTAL PROTEIN 6.6 gm/dL (6.0-8.0)
[2024-03-23 08:00] VITALS: BP 112/51
[2024-03-23] MEDS ORDERED: PERFLUTREN PROTEIN-A MICROSPHR 3 ML VIAL IV ONE (08:25)
[2024-03-23] MEDS ORDERED: amLODIPine besylate 5 MG TAB PO SCH (10:00)
[2024-03-23] MEDS ORDERED: EMPAGLIFLOZIN 25 MG TABLET PO SCH (10:00)
[2024-03-23] MEDS ORDERED: ASPIRIN ENTERIC COATED 81 MG TAB PO SCH (10:00)
[2024-03-23] MEDS ORDERED: EZETIMIBE 10 MG TAB PO SCH (10:00)
[2024-03-23] MEDS ORDERED: BRIMONIDINE 0.2% 5 ML BOTTLE OPH SCH (10:00)
[2024-03-23 12:00] VITALS: BP 120/63
[2024-03-23 16:00] VITALS: BP 125/74
[2024-03-23 20:00] VITALS: BP 123/67
[2024-03-23] MEDS ORDERED: METOPROLOL SUCCINATE XR 25 MG TAB PO SCH (22:00)
[2024-03-24] VITALS (9 sets, daily range): BP systolic 105–135; BP diastolic 59–71
[2024-03-24] MEDS ORDERED: NITROGLYCERIN 1 IN PACKET T SCH (00:34)
[2024-03-24] MEDS ORDERED: Dextrose/Nitroglycerin 250 ML IV SCH (01:50)
[2024-03-24] MEDS ORDERED: SODIUM CHLORIDE 0.9% 1,000 ML IV SCH (02:00)
[2024-03-24 06:18] LABS: BASO # 0.1 10*3/uL (0.0-0.1); BASO % 0.5 % (0.0-1.0); EOS # 1.3 10*3/uL (0.0-0.4); EOS % 10.2 % (1.0-4.0); HEMATOCRIT 38.4 % (37.0-47.0); LYMPH # 2.5 10*3/uL (1.3-4.4); MEAN CELL VOLUME 93.7 fl (81.0-99.0); MEAN CORPUSCULAR HGB 29.3 pg (27.0-31.0); MEAN CORPUSCULAR HGB CONC 31.3 g/dl (33.0-37.0); MEAN PLATELET VOLUME 12.6 fl (9.6-12.3); MONO # 1.2 10*3/uL (0.1-1.0); MONO % 8.9 % (3.0-9.0); NEUT % 60.9 % (47.0-73.0); PLATELET COUNT AUTOMATED 192 10*3/uL (130-400); RED CELL DISTRI WIDTH 16.9 % (0-14.5); WHITE BLOOD COUNT 13.2 10*3/uL (4.8-10.8)
== END 2024-03-24 08:30 | disposition short-term general hospital (02) | DRG 280 ==
LOC: ED 16:39 → EDHOLD 18:20 → 4E 18:20 → ICCU 03-24 02:30
PROVIDERS: Internal Medicine; Student in an Organized Health Care Education/Training Program; ADMIT Internal Medicine; ATTEND Internal Medicine
DX: I21.4 Non-ST elevation (NSTEMI) myocardial infarction (principal); N17.0 Acute kidney failure with tubular necrosis; I48.92 Unspecified atrial flutter; E11.22 Type 2 diabetes mellitus with diabetic chronic kidney disease; N18.9 Chronic kidney disease, unspecified; E78.5 Hyperlipidemia, unspecified; I48.0 Paroxysmal atrial fibrillation; I12.9 Hypertensive chronic kidney disease with stage 1 through stage 4 chronic kidney disease, or unspecified chronic kidney disease; E11.51 Type 2 diabetes mellitus with diabetic peripheral angiopathy without gangrene; E11.65 Type 2 diabetes mellitus with hyperglycemia; I20.89 Other forms of angina pectoris; F17.210 Nicotine dependence, cigarettes, uncomplicated; F41.9 Anxiety disorder, unspecified; E78.2 Mixed hyperlipidemia; Z71.6 Tobacco abuse counseling; Z95.1 Presence of aortocoronary bypass graft; Z79.01 Long term (current) use of anticoagulants; Z88.8 Allergy status to other drugs, medicaments and biological substances; Z90.710 Acquired absence of both cervix and uterus; Z98.51 Tubal ligation status; Z82.49 Family history of ischemic heart disease and other diseases of the circulatory system; Z79.51 Long term (current) use of inhaled steroids; Z79.82 Long term (current) use of aspirin; Z79.899 Other long term (current) drug therapy; Z79.4 Long term (current) use of insulin

== ENCOUNTER 2024-05-25 11:17 | Emergency (ER) | payer OTHER, MEDICAID ==
[~2024-05-25] VITALS: Ht 160 cm; Wt 71.2 kg
[~2024-05-25 11:17] MED LIST changes: +MIRTAZAPINE7.5 MG PO; +VARENICLINE TART1 MG PO
[2024-05-25 12:15] LABS: BILIRUBIN Negative (Negative); BLOOD 1+ (Negative); CLARITY Turbid (Clear); COLOR Yellow (Yellow); GLUCOSE 3+ (Negative); KETONE Negative (Negative); LEUKO ESTERASE 2+ (Negative); NITRITE Negative (Negative); PH 5.5 (4.5-8.0); SPECIFIC GRAVITY 1.015 (1.001-1.030); UROBILINOGEN 0.2 E.U./dl (0.0-1.0)
[2024-05-25 12:21] LABS: BASO # 0.1 10*3/uL (0.0-0.1); BASO % 0.7 % (0.0-1.0); EOS # 0.8 10*3/uL (0.0-0.4); EOS % 7.7 % (1.0-4.0); HEMATOCRIT 41.9 % (37.0-47.0); LYMPH # 1.8 10*3/uL (1.3-4.4); LYMPH % 17.8 % (27.0-41.0); MEAN CELL VOLUME 91.1 fl (81.0-99.0); MEAN CORPUSCULAR HGB 29.8 pg (27.0-31.0); MEAN CORPUSCULAR HGB CONC 32.7 g/dl (33.0-37.0); MEAN PLATELET VOLUME 11.2 fl (9.6-12.3); MONO # 1.1 10*3/uL (0.1-1.0); MONO % 10.6 % (3.0-9.0); NEUT # 6.4 10*3/uL (2.3-7.9); NEUT % 62.5 % (47.0-73.0); PLATELET COUNT AUTOMATED 251 10*3/uL (130-400); RED CELL DISTRI WIDTH 14.3 % (0-14.5); WHITE BLOOD COUNT 10.3 10*3/uL (4.8-10.8)
[2024-05-25 12:39] LABS: BACTERIA 1+; WBC TNTC wbc/hpf (0-5)
[2024-05-25] MEDS ORDERED: SODIUM CHLORIDE 0.9% 1,000 ML IV ONE (13:05)
[2024-05-25] MEDS ORDERED: INSULIN REGULAR, HUMAN 1 UNIT/0.01 ML IV ONE (13:05)
[2024-05-25] MEDS ORDERED: MAGNESIUM OXIDE 400 MG TAB PO ONE (13:05)
[2024-05-25] MEDS ORDERED: Ceftriaxone Sodium 1 GM/10 ML SYR IV ONE (14:20)
[2024-05-25] MEDS ORDERED: CIPRO500 MG PO (15:23)
== END 2024-05-25 15:39 | disposition home or self-care (01) ==
LOC: ED 11:17
PROVIDERS: Nurse Practitioner Family
DX: E11.65 Type 2 diabetes mellitus with hyperglycemia (principal); N39.0 Urinary tract infection, site not specified; F41.9 Anxiety disorder, unspecified; E78.5 Hyperlipidemia, unspecified; I10 Essential (primary) hypertension; I25.2 Old myocardial infarction; I48.91 Unspecified atrial fibrillation; I25.10 Atherosclerotic heart disease of native coronary artery without angina pectoris; E78.00 Pure hypercholesterolemia, unspecified; J44.9 Chronic obstructive pulmonary disease, unspecified; F17.200 Nicotine dependence, unspecified, uncomplicated; Z98.890 Other specified postprocedural states; Z90.710 Acquired absence of both cervix and uterus; Z98.51 Tubal ligation status

== ENCOUNTER → 2024-08-03 | Outpatient (CLI) | payer OTHER, MEDICAID ==
[2024-08-03 13:41] LABS: BASO # 0.1 10*3/uL (0.0-0.1); BASO % 0.6 % (0.0-1.0); EOS # 0.3 10*3/uL (0.0-0.4); EOS % 2.8 % (1.0-4.0); HEMATOCRIT 43.1 % (37.0-47.0); MEAN CELL VOLUME 92.1 fl (81.0-99.0); MEAN CORPUSCULAR HGB 28.4 pg (27.0-31.0); MEAN CORPUSCULAR HGB CONC 30.9 g/dl (33.0-37.0); MEAN PLATELET VOLUME 11.4 fl (9.6-12.3); MONO # 1.1 10*3/uL (0.1-1.0); MONO % 10.6 % (3.0-9.0); NEUT # 7.1 10*3/uL (2.3-7.9); PLATELET COUNT AUTOMATED 240 10*3/uL (130-400); RED BLOOD COUNT 4.68 10*6/uL (4.10-5.10); RED CELL DISTRI WIDTH 14.5 % (0-14.5)
[2024-08-03 13:47] LABS: BILIRUBIN Negative (Negative); BLOOD 3+ (Negative); CLARITY Turbid (Clear); COLOR Yellow (Yellow); GLUCOSE 1+ (Negative); KETONE Negative (Negative); LEUKO ESTERASE 2+ (Negative); NITRITE Negative (Negative); PH 5.5 (4.5-8.0); SPECIFIC GRAVITY 1.025 (1.001-1.030)
[2024-08-03 13:55] LABS: RBC 21-30 rbc/hpf (0-2); WBC TNTC wbc/hpf (0-5)
[2024-08-03 13:56] LABS: BACTERIA 1+
[2024-08-03 14:03] LABS: TOTAL PROTEIN 7.3 gm/dL (6.0-8.0)
== END | disposition home or self-care (01) ==
LOC: CT 02:42
PROVIDERS: ATTEND Urology
DX: N39.0 Urinary tract infection, site not specified (principal); R31.9 Hematuria, unspecified; J98.11 Atelectasis; N28.1 Cyst of kidney, acquired; M43.17 Spondylolisthesis, lumbosacral region

== ENCOUNTER 2024-08-07 23:28 | Emergency (ER) | payer OTHER, MEDICAID ==
[2024-08-08 00:42] LABS: BASO % 0.3 % (0.0-1.0); EOS % 0.1 % (1.0-4.0); HEMATOCRIT 43.9 % (37.0-47.0); MEAN CORPUSCULAR HGB 28.4 pg (27.0-31.0); MEAN CORPUSCULAR HGB CONC 31.9 g/dl (33.0-37.0); MEAN PLATELET VOLUME 11.2 fl (9.6-12.3); MONO # 0.6 10*3/uL (0.1-1.0); MONO % 5.7 % (3.0-9.0); NEUT # 9.7 10*3/uL (2.3-7.9); NEUT % 86.7 % (47.0-73.0); PLATELET COUNT AUTOMATED 220 10*3/uL (130-400); RED BLOOD COUNT 4.93 10*6/uL (4.10-5.10); WHITE BLOOD COUNT 11.2 10*3/uL (4.8-10.8)
[2024-08-08 00:46] LABS: BILIRUBIN Negative (Negative); BLOOD 2+ (Negative); CLARITY Clear (Clear); COLOR Yellow (Yellow); GLUCOSE 1+ (Negative); KETONE Trace (Negative); LEUKO ESTERASE Trace (Negative); NITRITE Negative (Negative); PH 6.5 (4.5-8.0); SPECIFIC GRAVITY 1.015 (1.001-1.030)
[2024-08-08 01:01] LABS: BUN 12 mg/dl (9-23); CHLORIDE 101 mmol/L (98-107); CPK 307 U/L (34-171); POTASSIUM 3.6 mmol/L (3.4-5.1)
[2024-08-08 01:04] LABS: ETHYL ALCOHOL < 3.0 mg/dl (<3)
[2024-08-08 01:13] LABS: ACT PARTIAL THROMBO TIME 28.2 SECONDS (20.0-32.1)
[2024-08-08 01:23] LABS: RBC 21-30 rbc/hpf (0-2)
[2024-08-08 01:24] LABS: BACTERIA TRACE
[2024-08-08] MEDS ORDERED: SODIUM CHLORIDE 0.9% 1,000 ML IV ONE ×2 (01:35→06:15)
[2024-08-08] MEDS ORDERED: ASPIRIN 325 MG TAB PO ONE (03:35)
[2024-08-08] MEDS ORDERED: MORPHINE Sulfate 2 MG/ML SYR IV ONE (03:50)
[2024-08-08] MEDS ORDERED: Ondansetron Hydrochloride 4 MG/2 ML VIAL IV ONE (04:45)
== END 2024-08-08 07:50 | disposition short-term general hospital (02) ==
LOC: ED 23:28
PROVIDERS: Internal Medicine
DX: T79.6XXA Traumatic ischemia of muscle, initial encounter (principal); G83.14 Monoplegia of lower limb affecting left nondominant side; G83.13 Monoplegia of lower limb affecting right nondominant side; R32 Unspecified urinary incontinence; I48.91 Unspecified atrial fibrillation; I25.2 Old myocardial infarction; I10 Essential (primary) hypertension; F41.9 Anxiety disorder, unspecified; E11.9 Type 2 diabetes mellitus without complications; I25.10 Atherosclerotic heart disease of native coronary artery without angina pectoris; J44.9 Chronic obstructive pulmonary disease, unspecified; F17.210 Nicotine dependence, cigarettes, uncomplicated; Z90.710 Acquired absence of both cervix and uterus; Z98.890 Other specified postprocedural states; Z79.899 Other long term (current) drug therapy; W19.XXXA Unspecified fall, initial encounter; Y93.89 Activity, other specified; Y92.009 Unspecified place in unspecified non-institutional (private) residence as the place of occurrence of the external cause; Y99.8 Other external cause status